=== PATIENT | male | born 1945 | race Caucasian/White ===

== ENCOUNTER 2021-10-22 16:40 | Emergency (ER) | payer MEDICARE, BC ==
[~2021-10-22] VITALS: Ht 182.9 cm; Wt 102.3 kg
[2021-10-22 17:19] VITALS: BP 168/72
[2021-10-22] MEDS ORDERED: ALBU6.7H9 INH (19:36)
[2021-10-22] MEDS ORDERED: BENZ-38 PO (19:36)
== END 2021-10-22 19:56 | disposition home or self-care (01) ==
LOC: ER 16:40
DX: J06.9 Acute upper respiratory infection, unspecified (principal); Z20.822 Contact with and (suspected) exposure to COVID-19; B97.89 Other viral agents as the cause of diseases classified elsewhere; I10 Essential (primary) hypertension; Z87.891 Personal history of nicotine dependence; Z95.5 Presence of coronary angioplasty implant and graft; Z98.890 Other specified postprocedural states; Z79.899 Other long term (current) drug therapy
CPT/HCPCS: 71046; 87502; 87503; 87635; 93005; 99285; C9803